=== PATIENT | male | born 1955 ===

== ENCOUNTER 2022-05-02 00:27 | Inpatient (IN) | payer MEDICARE, OTHER ==
[2022-05-02] VITALS (13 sets, daily range): BP systolic 107–156; BP diastolic 42–77; PULSE 84–119; TEMP 97.8–99.2
[~2022-05-02] VITALS: Ht 185.4 cm; Wt 79.5 kg
[2022-05-02] MEDS ORDERED: LASIX 80MG TABL80 MG PO (02:35)
[2022-05-02] MEDS ORDERED: TOPROL XL 25MG25 MG PO (02:36)
[2022-05-02] MEDS ORDERED: COZAAR 50MG50 MG/TAB PO (02:37)
[2022-05-02] MEDS ORDERED: FLONASEALLERGY NS ×2 (02:39)
[2022-05-02] MEDS ORDERED: PROFE180 MG PO (02:41)
[2022-05-02] MEDS ORDERED: NIACIN 100100 MG/TAB PO (02:42)
[2022-05-02 02:43] LABS: BASO # 0.1 K/mm3 (0.0-0.2); BASO % 0.4 % (0.0-2.0); EOS # 0.1 K/mm3 (0.0-0.7); EOS % 0.7 % (0.0-4.0); GRAN # 16.1 K/mm3 (1.4-6.5); GRAN % 85.5 % (42.2-75.2); HEMOGLOBIN 10.1 g/dl (13.5-18.0); LYMPH % 5.2 % (20.0-51.0); MEAN CELL VOLUME 91 fl (80.0-100.0); MEAN CORPUSCULAR HEMOGLOBIN 30 pg (27-31); MEAN CORPUSCULAR HGB CONC 33 g/dl (33.0-37.0); MEAN PLATELET VOLUME 9.2 fl (7.4-10.4); MONO # 1.4 K/mm3 (0.1-0.6); MONO % 7.3 % (1.7-9.3); PLATELET COUNT 235 K/mm3 (130-400); RED BLOOD COUNT 3.38 M/mm3 (4.20-5.60); REDCELL DISTRIBUTION WIDTH-CV 15.9 % (11.5-14.5)
[2022-05-02 02:47] LABS: HEMATOCRIT 30.6 % (42.0-52.0)
[2022-05-02] MEDS ORDERED: PROZAC40 MG PO (02:47)
[2022-05-02] MEDS ORDERED: RT ADVAIR 228 DISKUS IH (02:48)
[2022-05-02] MEDS ORDERED: PROTONIX 40MG T40 MG PO (02:49)
[2022-05-02] MEDS ORDERED: NORCO 325 MG-7.1 TAB PO (02:50)
[2022-05-02] MEDS ORDERED: MIRAPEX ER0.75 MG PO (02:55)
[2022-05-02 03:00] LABS: CALCIUM 8.1 mg/dL (8.4-10.2); CREATININE, serum 1.66 mg/dL (0.72-1.25); POTASSIUM 4.2 mmol/L (3.5-4.5)
[2022-05-02] MEDS ORDERED: K-DUR20 MEQ PO (03:01)
--- NOTE | 2022-05-02 04:00 | NUR ---
this RN was changing pt's dressings over abrasions, removed dressing from right elbow, deep laceration with visable bone noted, notified CHRISTIN Kemp @bedside, covered with mepilex at this time, will have ortho see pt this am. IV antibiotic started. tdap given as pt not up to date. pain controlled with iv dilaudid and po meds. IVF infusing @75cc/hr mag infusing @12.5 cc/hr.
--- NOTE | 2022-05-02 07:15 | NUR ---
ORTHO AT BEDSIDE, ASSISTED SURGEON TO PLACE SUTURES X4 INTO DEEP LACERATION TO RIGHT ELBOW FROM HORSE ACCIDENT. DSG & SPLINT PLACED TO RUE TO KEEP ARE STRAIGHT. SEE PROVIDER NOTES.
--- NOTE | 2022-05-02 07:48 | NUR ---
pt admitted to room 323 per ambulance from [place] for rt fx hip, pt has multiple abrasions over arms, face and shoulders, covered with dressings. iv in place to LAC, IVF infusing @100cc/hr, pt c/o pain 8/10 in right hip. Marianela in to see pt, orders reviewed, pt oriented to room and poc.
--- NOTE | 2022-05-02 08:00 | NUR ---
PATIENT IS A&O. VSS ON TELE. PATIENT WAS SLIDING DOWN IN BED, REPOSITIONED WITH 2 RN'S. PATIENT NOW C/O DISCOMFORT IN RIGHT HIP. GAVE PRN DILAUDID AND OXY 1 TAB FOR SEVERE PAIN. PLACED PILLOW UNDER RIGHT KNEE PER PATIENT REQUEST. NPO FOR POSSIBLE SURGERY IF CLEARED TODAY. BEDREST. POSITIVE PEDAL PULSES TO BLE. SCD'S TO BLE. NOTED PSORIASIS, WHICH IS CHRONIC, ALL OVER BODY BUT MOST PROMINENT TO BLE AND COCCYX. HEAD TO TOE ASSESSMENT COMPLETE. NO C/O N/V. IV FLUIDS INFUSING VIA PUMP INTO LEFT AC IV. VOIDING USING URINAL. NO OTHER NEEDS AT THIS TIME. PATIENT RESTING WITH CALL LIGHT IN REACH AND BED ALARM ON.
--- NOTE | 2022-05-02 11:12 | NUR ---
facilities maintenance worker met with patient and his , jose #[phone] to discuss discharge plans. Patient lives with and is independent with his activities of daily living. Patient states he was working with his horse when it pushed him backwards and he fell to the ground, fracturing his hip. Worker discussed rehab options and provided Medicare.gov share for rehab facilities and also home health agencies. Patient is hopeful to be cleared for surgery this date. Case Management will continue to follow and secure a safe discharge plan. Worker copied patient's living will and durable power of state's attorney for health care (naming his spouse). Patient primary care provider is [facility] in [place], [place].
[2022-05-02 11:23] LABS: URINE APPEARANCE Clear (CLEAR/HAZY); URINE COLOR Yellow (YELLOW); URINE GLUCOSE Negative (NEGATIVE); URINE KETONE Negative (NEGATIVE); URINE PROTEIN(semi-quant) Negative (NEGATIVE)
[2022-05-02 11:24] LABS: URINE BLOOD Negative (NEGATIVE); URINE NITRATE Negative (NEGATIVE); URINE UROBILINOGEN 0.2 E.U/dL (0.2-1.0)
[2022-05-02 11:27] LABS: MUCOUS Present (NOT PRESENT); SQUAMOUS EPITHELIAL None Seen /hpf (0-10); URINE BACTERIA None Seen /hpf (NONE SEEN); URINE RBC 0-2 /hpf (0-2); URINE WBC 0-2 /hpf (0-2)
[2022-05-02 12:14] LABS: COLLECTION METHOD CLEAN CATCH
[2022-05-02 13:03] LABS: CALCIUM 8.3 mg/dL (8.4-10.2); CREATININE, serum 1.67 mg/dL (0.72-1.25); POTASSIUM 4.2 mmol/L (3.5-4.5)
[2022-05-02 13:04] LABS: BASO # 0.1 K/mm3 (0.0-0.2); BASO % 0.7 % (0.0-2.0); EOS # 0.5 K/mm3 (0.0-0.7); EOS % 3.5 % (0.0-4.0); GRAN # 11.2 K/mm3 (1.4-6.5); GRAN % 81.5 % (42.2-75.2); HEMATOCRIT 32.4 % (42.0-52.0); HEMOGLOBIN 10.4 g/dl (13.5-18.0); MEAN CELL VOLUME 92 fl (80.0-100.0); MEAN CORPUSCULAR HEMOGLOBIN 29 pg (27-31); MEAN CORPUSCULAR HGB CONC 32 g/dl (33.0-37.0); MEAN PLATELET VOLUME 9.4 fl (7.4-10.4); MONO # 0.9 K/mm3 (0.1-0.6); MONO % 6.6 % (1.7-9.3); PLATELET COUNT 235 K/mm3 (130-400); RED BLOOD COUNT 3.54 M/mm3 (4.20-5.60); REDCELL DISTRIBUTION WIDTH-CV 15.9 % (11.5-14.5)
--- NOTE | 2022-05-02 13:15 | NUR ---
PATIENT CLEARED FOR SURGERY, ORTHO NOTIFIED. SEE ORDERS FOR CONSENT. WILL NOTIFY OR.
--- NOTE | 2022-05-02 13:30 | NUR ---
PATIENT GIVEN UPDATE ON SURGERY CLEARENCE. OR CALLED AND WANTS TO TAKE PATIENT DOWN IN 30 MINUTES. CONSENT OBTAINED. FAMILY AT BEDSIDE.
--- NOTE | 2022-05-02 14:00 | NUR ---
PATIENT GOING DOWN TO OR VIA BED. CONSENT ON CHART. IV FLUIDS VIA GRAVITY. FAMILY AT BEDSIDE. PATIENT OFF FLOOR.
--- NOTE | 2022-05-02 16:20 | NUR ---
PATIENT BACK IN ROOM POST OP. ORIENTED BUT DROWSY. VSS ON TELE. 02 @ 4L PER NC WITH SATS IN MID 90'S. PATIENT IS A SMOKER AND USES A C-PAP AT HS AT HOME. RIGHT HIP FOAM TAPE DRESSING IS CD&I WITH ICE PACK INPLACE. TEDS & SCD'S TO BLE. IV FLUIDS INFUSING INTO LEFT AC IV. URINAL AT BEDSIDE. HEAD TO TOE ASSESSMENT WNL. PATIENT SLEEPING. NO OTHER NEEDS. CALL LIGHT IN REACH. FAMILY AT BEDSIDE.
--- NOTE | 2022-05-03 01:44 | NUR ---
PATIENT ALERT AND ORIENTEDX4, C/O OF PAIN ON RIGHT HIP PAIN SCORE OF 6-7/10, GIVEN DILAUDID, STILL WITH INT ON RAC, HEAD TO TOE ASSESSMENT DONE, NO FURTHER CONCERNS AT THIS TIME, DRINKING, EATING AND URINATING WELL.
[2022-05-03 03:37] VITALS: BP 134/71; PULSE 75; TEMP 97.9
[2022-05-03 05:36] LABS: HEMOGLOBIN 10.2 g/dl (13.5-18.0); MEAN CELL VOLUME 91 fl (80.0-100.0); MEAN CORPUSCULAR HEMOGLOBIN 31 pg (27-31); MEAN CORPUSCULAR HGB CONC 33 g/dl (33.0-37.0); MEAN PLATELET VOLUME 9.5 fl (7.4-10.4); PLATELET COUNT 214 K/mm3 (130-400); RED BLOOD COUNT 3.34 M/mm3 (4.20-5.60); REDCELL DISTRIBUTION WIDTH-CV 15.7 % (11.5-14.5)
[2022-05-03 05:39] LABS: HEMATOCRIT 30.5 % (42.0-52.0)
[2022-05-03 05:49] LABS: CALCIUM 8.4 mg/dL (8.4-10.2); CREATININE, serum 1.31 mg/dL (0.72-1.25); POTASSIUM 4.6 mmol/L (3.5-4.5)
[2022-05-03 06:07] LABS: ANISOCYTOSIS 1+; LYMPHOCYTE 3 % (20.0-51.0); NEUTROPHILS 97 % (42.0-75.2); PLATELET ESTIMATE NORMAL (NORMAL); SCHISTOCYTES 1+
--- NOTE | 2022-05-03 06:17 | NUR ---
PT RESTED FOR FEW HOURS, REPORTED PAIN IS BETTER THAN IT WAS, FROM 6-03/04 AND TO 12/03, ICE PACK TO RIGHT HIP, REFUSED SCD, WITH ANTIEMBOLIC STOCKINGS BOTH LEGS.
[2022-05-03 07:12] VITALS: BP 123/63; PULSE 69; TEMP 98
--- NOTE | 2022-05-03 08:00 | NUR ---
PATIENT IS UP IN BEDSIDE CHAIR WITH BREAKFAST TRAY. FAMILY AT BEDSIDE. A&O. VSS. REPORTS LITTLE TO NO DISCOMFORT IN RIGHT HIP WHILE SITTING. NURSING ENCOURAGED TAKING SOMETHING FOR DISCOMFORT BEFORE AM PT. OT CURRENTLY AT BEDSIDE. PATIENT AGREED, GAVE PRN OXYCODONE AND SCHEDULED TYLENOL WITH AM MEDS. RIGHT HIP DRESSING IS CD&I. TEDS TO BLE. SCD'S CURRENTLY OFF. POSITIVE PEDAL PULSES TO BLE. CHANGED RUE DRESSING PER ORDERS, PATIENT TOLERATED WELL. LEFT AC IV TO INT. HEAD TO TOE ASSESSMENT COMPLETE. URINAL AT CHAIR SIDE. NO OTHER NEEDS AT THIS TIME. CALL LIGHT IN REACH.
--- NOTE | 2022-05-03 09:35 | NUR ---
BREATHING TREATMENT NOT GIVEN, PATIENT WITH PT AT THIS TIME
--- NOTE | 2022-05-03 10:00 | NUR ---
PATIENT'S DAUGHTER IS OUT AT DESK ASKING FOR MORE PAIN MEDS FOR HER DAD. PATIENT HAS JUST FINISHED WITH THERAPY AND IS HURTING SITTING UP IN BEDSIDE CHAIR. PATIENT RECEIVED NARCOTIC APPROX AN HOUR AGO WITH TYLENOL. PATIENT JUST WANTING TO GET BACK IN BED. NURSING ASSISTED PATIENT BACK TO BED, PILLOW UNDER RLE THIGH TO TAKE SOME PRESSURE OFF, REFUSED ICE PACK. PATIENT RESTING WITH FAMILY AT BEDSIDE. CALL LIGHT IN REACH. WILL MONITOR.
--- NOTE | 2022-05-03 10:48 | NUR ---
Initial visit; Patient and family thanked Support Services Specialist for looking in on him and visiting about his family with whom Support Services Specialist is acquiainted. Patient states he is doing well and although in some pain knows it will get better with time. He welcomed Support Services Specialist to visit anytime while he is here. Support Services Specialist will follow up.
--- NOTE | 2022-05-03 10:50 | NUR ---
PATIENT CALLED OUT AND SAID HE IS STILL CRAMPING & HAVING MUSCLE SPASMS IN HIS RIGHT HIP. PATIENT APPEARS VERY UNCONFORTABLE AND HAS NOTED SPASMS IN RLE. GAVE PRN IV DILAUDID. LEFT MESSAGE FOR ORTHO, AWAITING A RETURN CALL. PATIENT REPOSITIONED TO COMFORT IN BED. AT BEDSIDE.
[2022-05-03 11:33] VITALS: BP 125/65; PULSE 82; TEMP 97.7
--- NOTE | 2022-05-03 15:00 | NUR ---
PATIENT IS CONTINIOUSLY HAVING ISSUES WITH RLE SPASMS AND SEVERE RESTLESS LEG. NURSING HAS GIVEN PO AND IV NARCOTICS WELL MUSCLE RELAXANT. PATIENT STILL SUFFERING FROM INTERMITTENT SPASMS. NURSING NOTED PATIENT TAKES MEDS FOR RESTLESS LEGS. CALLED HOSPITALIST & PHARMACY TO GET CONTINUED FOR PATIENT. ALSO USING HEAT & ICE. PATIENT REPOSITIONED. AWAITING CONFIRMATION TO START UP PATIENT'S HOME RESTLESS LEG MEDS.
[2022-05-03 15:34] VITALS: BP 125/58; PULSE 88; TEMP 97.7
[2022-05-03 20:33] VITALS: BP 127/68; PULSE 85; TEMP 97.6
[2022-05-03 23:16] VITALS: BP 122/56; PULSE 78; TEMP 97.5
--- NOTE | 2022-05-03 23:17 | NUR ---
PATIENT ALERT AND ORIENTED X4 , INT TO LFA CDI, DRESSING TO RIGHT HIP AREA CDI, C/O OF RESTLESS LEGS EVEN AFTER TAKING FLEXIRIL, DILAUDID AND OXYCODONE GIVEN, WITH DRESSING TO RUE WRAPPED WITH HENRIQUE WRAP CDI, INSTRUCTED NOT TO BEND THAT ARM, WILL CONTINUE TO MONITOR, ON OXYGEN VIA NASAL PRONG AT 2LPM.
[2022-05-04 04:27] VITALS: BP 141/74; PULSE 83; TEMP 97.9
[2022-05-04 08:47] VITALS: BP 134/60; PULSE 88; TEMP 97.6
--- NOTE | 2022-05-04 09:26 | NUR ---
PATIENT ALERT AND ORIENTED X4. VSS. PATIENT HERE FOR RIGHT HIP FRACTURE. PATIENT HAS MULTIPLE LACERATIONS AND ABRASIONS BUE. LEFT ELBOW WITH DRESSING. RIGHT FOREARM WITH SKIN TEAR WITH XEROFORM, 4X4, KAT, AND HENRIQUE. PATIENT COMPLAINS OF PAIN 8/10 REQUESTS PAIN MEDICATION. NICOTINE PATCH TO LEFT SHOULDER. PATIENT ON 2L O2 PER NC. ASSESSMENT PERFORMED. AM MEDS ADMINISTERED. PATIENT IN BED WITH CALL LIGHT NEAR.
[2022-05-04 11:13] VITALS: BP 142/68; PULSE 89; TEMP 97.7
--- NOTE | 2022-05-04 15:05 | NUR ---
motion picture set up worker met with patient to check in on him and discuss discharge plan. Patient verbalizes that with what is going on now, he is aware that he cannot go home safely. Patient goes on to say that his has had multiple stroke in the past and if he was to fall or need cares at home, she would not be able to take care of him in the condition he is in. Patient verbalizes that his preferred choice would be [facility]. SW made phone call to the [facility] and spoke with the BD coordinator Bessy who states they do have bed but the accepting phaysician is not in at this time. Call later made to Bessy to confirm that she did get the referral, which she did. Bessy states that clinically they should be able to accept but will not know until Saturday when his PCP/accepting physician is back. Hospitalist updated.
[2022-05-04 16:19] VITALS: BP 144/67; PULSE 89; TEMP 98.6
[2022-05-04 19:49] VITALS: BP 158/77; PULSE 92; TEMP 98.6
[2022-05-04 23:42] VITALS: BP 160/73; PULSE 96; TEMP 98.9
--- NOTE | 2022-05-05 02:22 | NUR ---
PATIENT IN BED ON ROOM ENTRY. ALERT AND ORIENTED. C/O SPASMS AND R SIDED CRAMPING THROUGHOUT THE NIGHT. SEE EMAR FOR PAIN ADMINISTRATION. IV TO L AC INFILTRATED AND RESTARTED TO L FA. DENIES ADDITIONAL NEEDS. CALL LIGHT IN REACH.
[2022-05-05 04:40] VITALS: BP 140/70; PULSE 79; TEMP 97.6
[2022-05-05 08:40] VITALS: BP 149/69; PULSE 79; TEMP 98.2
--- NOTE | 2022-05-05 11:07 | NUR ---
PATIENT ALERT AND ORIENTED X4. VSS. PATIENT IS ON 1L PER NC. DRESSING TO RIGHT HIP CDI. DRESSING TO RIGHT ARM CDI. PATIENT DENIES PAIN AT THIS TIME. PATIENT RESTING IN BED WITH CALL LIGHT NEAR.
[2022-05-05 12:00] VITALS: BP 116/65; PULSE 88; TEMP 98.5
--- NOTE | 2022-05-05 12:55 | NUR ---
Appeals Specialist rounds: Appeals Specialist visit offered. Patient declined. Asked that resident care aid return at a later time.
[2022-05-05 15:33] VITALS: BP 134/66; PULSE 73; TEMP 97.8
--- NOTE | 2022-05-05 16:35 | NUR ---
ASSUMED CARE OF PT AT 1500, VSS, PT A&O X4, PT ABLE TO MAKE NEEDS KNOWN, CALL LIGHT IN REACH, FALL PRECAUTIONS IN PLACE
[2022-05-05 19:19] VITALS: BP 151/66; PULSE 86; TEMP 98
--- NOTE | 2022-05-05 20:00 | NUR ---
Pt sitting up on edge of the bed. A&O x4. Verbalizes no needs or concerns at this moment. Shift assessment completed. Right arm Anand wrap CDI. Pain is reported only when trying to bear weight on right hand. Dressings on left arm CDI. During skin assessment, red patches of skin all over body. Dryness and scaly areas, specially on bilateral upper extremities, which are consistents with psoriasis verbalized by pt. Tele on. Left forearm INT, CDI, remains in place. Myke hose on bilateral extremities. Dressing on right hip CDI. Pt reports that pain is usually focused on right leg and not on his right hip when attempting to move. Fall risk precautions remain in place. Call light within reach.
[2022-05-05 23:25] VITALS: BP 110/57; PULSE 78; TEMP 98
--- NOTE | 2022-05-05 23:47 | NUR ---
Pt currently sleeping. Requested topical ointment twice to be applied on right tight due to pain starting to increase. RN working along this SPRAY MIXER aware of pain not decreasing. Pt also requested sleep medication and refused to use CPAP. Will keep monitoring. Call light within reach.
--- NOTE | 2022-05-06 03:58 | NUR ---
PT REQUESTS TO SIT ON SIDE OF THE BED AT THIS TIME. THIS RN AND ROCCO CHAVEZ ASSISTED PT TO SIDE OF BED. BELONGINGS AND CALL LIGHT WITHIN REACH. PT TOILETED IMMEDIATELY PRIOR TO REPOSITIONING. WILL CONTINUE TO MONITOR.
[2022-05-06 04:29] VITALS: BP 111/52; PULSE 82; TEMP 97.3
--- NOTE | 2022-05-06 05:20 | NUR ---
Pt sitting down on edge of the bed. Pillows used on the back to support back. Heat pad on right thigh. Pt able to sleep in this position after several attempts to repositioning him on the bed. Pt requested Camphor several times to be applied on right thigh due to cramping and disconfort. Call light within reach.
[2022-05-06 07:51] VITALS: BP 129/59; PULSE 92; TEMP 97.9
[2022-05-06 11:56] VITALS: BP 146/58; PULSE 92; TEMP 99.4
[2022-05-06 15:05] VITALS: BP 144/68; PULSE 80; TEMP 97.6
--- NOTE | 2022-05-06 15:29 | NUR ---
PATIENT AND FAMILY HAD QUESTIONS ABOUT HOME MEDICATION, LASIX. MEDICATION RESUMED PER PATIENTS REQUEST.
[2022-05-06 19:30] VITALS: BP 123/73; PULSE 97; TEMP 97.8
--- NOTE | 2022-05-06 20:30 | NUR ---
Pt sitting up in recliner. A&O x4. VSS. Shift assessment completed. Pt complaining of pain scored at 8/10 on right leg. Requested assistance to get transfered to bed. Left forearm INT in place. CDI. Right hip incision open to air, edges well approximated. Will continue monitoring Call light within reach.
[2022-05-06 23:51] VITALS: BP 144/59; PULSE 95; TEMP 98.3
[2022-05-07 03:13] VITALS: BP 135/68; PULSE 87; TEMP 98.1
[2022-05-07 07:51] VITALS: BP 143/62; PULSE 89; TEMP 98.3
[2022-05-07] MEDS ORDERED: ASPI325T6 PO (08:00)
[2022-05-07] MEDS ORDERED: OSCAL 500 TAB500 MG PO (08:00)
[2022-05-07] MEDS ORDERED: VITAMIN C500 MG PO (08:01)
[2022-05-07] MEDS ORDERED: DUO-KAPS1 CAP PO (08:01)
--- NOTE | 2022-05-07 08:32 | NUR ---
Phone call made to [facility] and spoke with the Bessy who states the physicians do not normally show up until around 9am. She will call me as soon as she hears from the patient's provider.
[2022-05-07] MEDS ORDERED: MENTHOLATUM TP (08:42)
--- NOTE | 2022-05-07 09:15 | NUR ---
Pt. sitting up in bed. Pt. is a&OX3, assessment complete. INT to lt. ac patent. PT. reported pain at a 4 on pain scale, gave flexeril per orders. Incision to rt. hip well approximated. Dressing to rt. elbow CDI. Pt. denies further needs, call light within reach.
--- NOTE | 2022-05-07 10:02 | NUR ---
Patient accepted at [facility] for admit today. Patient, patient's RN and hospitalist notified. Patient reports that his son will be there around 1130 to pick him up. Covid Swab requested.
--- NOTE | 2022-05-07 10:16 | NUR ---
Patient provided with MCR.IM form. Education provided and patient verbalized his understanding and agreement with discharge plan for today. Patients signed original placed in the patients chart and copy provided back to the patient. Discharge plan:[facility]
--- NOTE | 2022-05-07 10:35 | NUR ---
SW notified by patient's RN that rapid covid swab resulted as positive. Phone call make to [facility] to see if they will still be able to accept this patient. Bessy is going to check with accepting physician and call me back.
--- NOTE | 2022-05-07 10:37 | NUR ---
Pt. swabbed for covid prior to discharge to other facility. Results came back positive. CHRISTIN Feliz, TRIXIE Bear, and Rivas sup. notified.
--- NOTE | 2022-05-07 13:10 | NUR ---
ASHLEY notified accepting facility that the patient's PCR swab came back positive as well. ASHLEY spoke with [facility] who states that they should still be able to accept the patient bvt is needing to speaking with the accepting physician and make arrangements for isolation room.
--- NOTE | 2022-05-07 13:50 | NUR ---
Phone call received from MILES Garcia at [facility] who states that they are able to still accept this patient and can admit today. Patient's RN and community affairs director notified. Patient calls son for transportation. Patient's discharge orders and covid results faxed to accepting facility. Discharge plan: [facility]
--- NOTE | 2022-05-07 14:00 | NUR ---
OK to discharge pt. to [facility]. Pt. given dicharge packet with instructions to give to [facility] nurse. Pt. voices understanding. INT discontinued from lt. ac. Pt. tolerated we. Pt. dressed and escorted out by this nurse and BUSINESS PLANNING DIRECTOR.
== END 2022-05-07 14:00 | disposition swing bed (61) | DRG 480 ==
LOC: SURG 00:27
PROVIDERS: Orthopaedic Surgery; Student in an Organized Health Care Education/Training Program; ADMIT Internal Medicine
PROC: 0QS636Z Reposition Right Upper Femur with Intramedullary Internal Fixation Device, Percutaneous Approach (ICD-10-PCS; principal; 2022-05-02 14:30)
DX: S72.041A Displaced fracture of base of neck of right femur, initial encounter for closed fracture (principal); U07.1 COVID-19; N17.9 Acute kidney failure, unspecified; W18.39XA Other fall on same level, initial encounter; I48.0 Paroxysmal atrial fibrillation; I10 Essential (primary) hypertension; G47.33 Obstructive sleep apnea (adult) (pediatric); E78.5 Hyperlipidemia, unspecified; F41.9 Anxiety disorder, unspecified; L40.0 Psoriasis vulgaris; F17.210 Nicotine dependence, cigarettes, uncomplicated; S51.011A Laceration without foreign body of right elbow, initial encounter; S00.03XA Contusion of scalp, initial encounter; S00.01XA Abrasion of scalp, initial encounter; I49.3 Ventricular premature depolarization; H11.31 Conjunctival hemorrhage, right eye; I25.10 Atherosclerotic heart disease of native coronary artery without angina pectoris; I08.1 Rheumatic disorders of both mitral and tricuspid valves; G20 Parkinson's disease; I12.9 Hypertensive chronic kidney disease with stage 1 through stage 4 chronic kidney disease, or unspecified chronic kidney disease; N18.9 Chronic kidney disease, unspecified; Z79.01 Long term (current) use of anticoagulants; Y93.89 Activity, other specified; Y92.89 Other specified places as the place of occurrence of the external cause; Z88.1 Allergy status to other antibiotic agents; Z88.8 Allergy status to other drugs, medicaments and biological substances; Z99.81 Dependence on supplemental oxygen
CPT/HCPCS: A9284; C1713; J0690; J1100; J1170; J2250; J2405; J2704; J2795; J3010; J3475